=== PATIENT | female | born 1940 | race Caucasian/White ===

== ENCOUNTER 2023-12-09 07:55 | Observation (INO) ==
[2023-12-09] MEDS ORDERED: Sulfur Hexaflouride MICROSPHR 25 MG VIAL ONE (08:14)
[2023-12-09] MEDS: Nitroglycerin 0.3 mg TAB SL PRN (08:20)
[2023-12-09] MEDS: Heparin - STEMI 5,000 UNITS/ML 1 ml VIAL IV ONE (08:20)
[2023-12-09 08:22] LABS: ABS Basophils 0.1 10^3/uL (0.0-0.1); ABS Eosinophils 0.2 10^3/uL (0.0-0.5); ABS Lymphocytes 1.2 10^3/uL (1.0-4.8); ABS Monocytes 1.3 10^3/uL (0.0-0.9); ABS Neutrophils 7.8 10^3/uL (1.5-7.6); ABS Nucleated RBC 0.02 10^3/ul; Eosinophil % 1.9 %; Hematocrit 47.1 % (35-45); Hemoglobin 16.3 g/dL (11.5-14.3); Lymphocyte % 10.9 %; Mean Corpuscular Hemoglobin 31.5 pg (27-33); Mean Corpuscular Hgb Conc 34.5 g/dL (31-36); Mean Corpuscular Volume 91.2 fL (80-97); Mean Platelet Volume 6.7 fL (7.5-11.2); Nucleated Red Blood Cells % 0.2 %/100WBC (0.0-0.8); Platelet Count 341 10^3/uL (150-450); Red Blood Count 5.17 10^6/uL (3.63-4.92); Red Cell Distribution Width 14.5 % (12-17); White Blood Count 10.6 10^3/uL (3.8-11.8)
[2023-12-09 08:35] LABS: Activated Partial Thrombo Time 28.7 seconds (26.0-38.0)
[2023-12-09 08:45] LABS: INR 0.94 (0.83-1.13)
[2023-12-09 09:05] LABS: Magnesium 1.9 mg/dL (1.9-2.7)
[2023-12-09 09:07] LABS: Albumin/Globulin Ratio 1.3 (1-3); Calcium 9.4 mg/dL (8.6-10.3); Creatinine, Serum 0.72 mg/dL (0.51-0.95); Globulin 3.2 g/dL (2-4); Potassium 4.7 mmol/L (3.5-5.0); Total Bilirubin 0.6 mg/dL (0.2-1.0); Total Protein 7.2 g/dL (6.4-8.9); eGFR CKD-EPI 82.4 (>60)
[2023-12-09] MEDS: Heparin DRIP 25,000 UNITS BAG 25,000 UNITS/250 ML BAG IV SCH (09:16)
[2023-12-09] MEDS: Heparin 5000 UNITS/ML 1 mL VIAL IV SCH (09:17)
[2023-12-09] MEDS: NS 0.9% 1000 ml BAG 1,000 ML IV SCH (09:48)
[2023-12-09 09:57] LABS: Hematocrit 45.1 % (35-45); Hemoglobin 15.3 g/dL (11.5-14.3); Mean Corpuscular Hemoglobin 30.8 pg (27-33); Mean Corpuscular Hgb Conc 33.9 g/dL (31-36); Mean Corpuscular Volume 90.9 fL (80-97); Red Blood Count 4.97 10^6/uL (3.63-4.92); Red Cell Distribution Width 14.5 % (12-17); White Blood Count 12.6 10^3/uL (3.8-11.8)
[2023-12-09 10:04] LABS: High Sensitivity Troponin 1 Hr 4 pg/mL (<15)
[2023-12-09 10:07] LABS: Creatinine, Serum 0.72 mg/dL (0.51-0.95); eGFR CKD-EPI 82.4 (>60)
[2023-12-09 10:10] LABS: ABS Basophils 0.1 10^3/uL (0.0-0.1); ABS Eosinophils 0.2 10^3/uL (0.0-0.5); ABS Lymphocytes 1.2 10^3/uL (1.0-4.8); ABS Monocytes 1.3 10^3/uL (0.0-0.9); ABS Neutrophils 9.8 10^3/uL (1.5-7.6); ABS Nucleated RBC 0.02 10^3/ul; Eosinophil % 1.2 %; Lymphocyte % 9.5 %; Nucleated Red Blood Cells % 0.2 %/100WBC (0.0-0.8); Platelet Count 333 10^3/uL (150-450)
[2023-12-09] MEDS: nitroGLYCERIN DRIP 25,000 MCG/250 ML BTL IV SCH (11:37)
[2023-12-09 12:08] LABS: High Sensitivity Troponin 3 Hr 4 pg/mL (<15)
[2023-12-09] MEDS ORDERED: Calcium Carb (TUMS) 500 mg CHEW TAB PO PRN (12:32)
[2023-12-09] MEDS ORDERED: Regadenoson 0.4 MG/5 ML SYRINGE ONE (13:59)
[2023-12-10 07:43] LABS: Calcium 8.4 mg/dL (8.6-10.3); Creatinine, Serum 0.58 mg/dL (0.51-0.95); Magnesium 1.7 mg/dL (1.9-2.7); Potassium 4.4 mmol/L (3.5-5.0); eGFR CKD-EPI 89.2 (>60)
[2023-12-10] MEDS: Aspirin EC 81 mg TAB.EC (enteric coated) PO SCH (09:34)
[2023-12-10 10:10] VITALS: BP 109/59
== END 2023-12-10 10:18 | disposition home or self-care (01) ==
LOC: ED 07:55 → EDHOLD 07:55 → SUATTDRO 09:40 → MEDTELE 12:07
PROVIDERS: ADMIT Internal Medicine; ATTEND Internal Medicine